=== PATIENT | male | born 1970 | race Caucasian/White ===

== ENCOUNTER 2023-09-28 01:19 | Emergency (ER) | payer BC ==
[~2023-09-28] VITALS: Ht 170.2 cm; Wt 105.2 kg
[2023-09-28] MEDS ORDERED: KETOROLAC TROMETHAMINE 30 MG VIAL IM ONE (02:00)
[2023-09-28 02:20] VITALS: BP_SYST 161; PULSE 83; RESP 22; TEMP 97.5; O2SAT 97
[2023-09-28] MEDS ORDERED: IMI50 PO (04:55)
[2023-09-28] MEDS ORDERED: TRAM50TA2 PO (04:55)
[2023-09-28 05:13] VITALS: BP_SYST 138; PULSE 77; TEMP 97.1; O2SAT 97
== END 2023-09-28 05:13 | disposition home or self-care (01) ==
LOC: SED 01:19
DX: G43.909 Migraine, unspecified, not intractable, without status migrainosus (principal); I10 Essential (primary) hypertension; Z91.013 Allergy to seafood; Z79.899 Other long term (current) drug therapy
CPT/HCPCS: 99285; 70450; 76376; 96372; J1885